=== PATIENT | female | born 1995 | race Caucasian/White ===

== ENCOUNTER 2018-11-26 18:35 | Emergency (ER) | payer SELFPAY ==
--- NOTE | 2018-11-26 19:19 | ER Document Report ---
ED Medical Screen (RME) - General Chief Complaint: Low Back Pain Stated Complaint: BACK PAIN Time Seen by Provider: 11/26/18 19:03 - HPI Notes: 11/26/18 19:15 Patient is a 23-year-old female with a history of herniated disc surgery in April 2018 by [facility] who presents complaining of 4 days of increased right lower back pain. Patient states that today she has had difficulty ambulating as her leg wants to give out on her constantly anytime she puts weight on it. Patient states that she is not experiencing any significant pain when she weight bears, but her leg will give out on her. Patient states that she has been having pain that radiates into the right lower extremity intermittently from her back. Denies drug allergies. She is able to urinate normally and have normal bowel movements. Denies FINNEY, fever, neck pain, URI, CP, SOB, Abd pain, dysuria, or rash. Reviewed with Dr. Almanza: we will obtain an MRI. I have treated and performed a rapid initial assessment of this patient. A comprehensive ED assessment and evaluation of the patient, analysis of test results and completion of medical decision making process will be conducted by additional ED providers. PHYSICAL EXAMINATION: GENERAL: Well-appearing, well-nourished and in no acute distress. LUNGS: Breath sounds clear to auscultation bilaterally and equal. No wheezes rales or rhonchi. HEART: Regular rate and rhythm without murmurs, rubs, gallops. Musculoskeletal: LE's b/l: FROM to passive/active. Strength 5+/5. No deficits noted. No bony tenderness of extremities. Back: FROM to passive/active. Strength 5+/5. No vertebral point tenderness, stepoffs, or deformities. No other bony tenderness, erythema, swelling, or ecchymosis. SLR negative b/l. + tenderness to the Rt L-paraspinal mm. Mild spasming. No SI jt tenderness. No foot drop. When patient was stood up she collapsed to her right knee repeatedly if she tried to put weight on her right leg (not c/o any pain associated, however). Extremities: No cyanosis, clubbing, or edema b/l. Peripheral pulses 2+. Capillary refill less than 2 seconds. PSYCH: Normal mood, normal affect. SKIN: Warm, Dry, normal turgor, no rashes or lesions noted. - Related Data Allergies/Adverse Reactions: No Known Allergies Allergy (Unverified 11/26/18 18:43) Past Medical History - Social History Frequency of alcohol use: None Drug Abuse: None Renal/ Medical History: Denies: Hx Peritoneal Dialysis Past Surgical History: Reports: Hx Orthopedic Surgery - 2019 Physical Exam - Vital signs Vitals: Temp Pulse Resp BP Pulse Ox 98.5 F 86 16 130/76 H 97 11/26/18 18:44 11/26/18 18:44 11/26/18 18:44 11/26/18 18:44 11/26/18 18:44 Course - Vital Signs Vital signs: Temp Pulse Resp BP Pulse Ox 98.5 F 86 16 130/76 H 97 11/26/18 18:44 11/26/18 18:44 11/26/18 18:44 11/26/18 18:44 11/26/18 18:44
--- NOTE | 2018-11-26 20:55 | RADIOLOGY REPORT (SQ) ---
EXAM DESCRIPTION: MR LUMBAR SPINE WITHOUT IV CONTRAST COMPLETED DATE/TME: 11/26/2018 19:14 CLINICAL HISTORY: 23 years Female Low back pain, leg giving way COMPARISON: None. TECHNIQUE: Multiplanar and multisequence imaging obtained through the lumbar spine without IV contrast. FINDINGS: There is normal lumbar alignment and lordosis. Reactive endplate changes are present at L4-5 and L5-S1. Otherwise there is normal marrow signal. There is loss of disc height and signal at L3-4 L4-5 and L5-S1 consistent with disc desiccation. Schmorl's nodes at multiple levels including posterior Schmorl's node at L5. Conus appears unremarkable and ends at L1. L1-2 and L2-3: Essentially unremarkable. L3-4: There is a broad-based central and right sided disc herniation which results in moderate spinal stenosis. A disc fragment extends along the right aspect of the spinal canal and impinges on the right L3 nerve root. L4-5: Broad-based central and right-sided disc protrusion with mild narrowing of the central canal and mild neural foraminal stenosis. L5-S1: Broad-based disc bulge laterally on the left with moderate left neural foraminal narrowing. IMPRESSION: Degenerative disc disease with a broad-based central and right lateral disc herniation with disc fragment extending along the right aspect of the canal resulting in moderate central canal stenosis and impingement on the neural foramen. The nerve root is displaced superiorly and appears slightly enlarged and likely edematous. Broad-based central and slightly right-sided disc and associated with a posterior Schmorl's node resulting in mild central canal stenosis and bilateral neural foraminal stenosis at L4-5 Left lateral disc osteophyte at L5-S1 with moderate left neural foraminal stenosis
[2018-11-26 21:24] LABS: ABSOLUTE LYMPHOCYTES (AUTO) 2.7 10^3/uL (0.5-4.7); ABSOLUTE MONOCYTES (AUTO) 0.8 10^3/uL (0.1-1.4); ABSOLUTE NEUT (AUTO) 9.6 10^3/uL (1.7-8.2); BASOPHILS % (AUTO) 0.3 % (0-2); EOSINOPHILS % (AUTO) 0.3 % (0-6); HEMOGLOBIN 13.2 g/dL (12.0-15.5); LYMPHOCYTES % (AUTO) 20.3 % (13-45); MEAN CORPUSCULAR HEMOGLOBIN 27.6 pg (27.0-33.4); MEAN CORPUSCULAR HGB CONC 33.8 g/dL (32.0-36.0); MEAN CORPUSCULAR VOLUME 82 fl (80-97); MONOCYTES % (AUTO) 6.5 % (3-13); PLATELET COUNT 412 10^3/uL (150-450); RED BLOOD COUNT 4.77 10^6/uL (3.72-5.28); RED CELL DISTRIBUTION WIDTH 13.9 % (11.5-14.0); SEGMENTED NEUTROPHILS % (AUTO) 72.6 % (42-78); TOTAL CELLS COUNTED % (AUTO) 100 %; WHITE BLOOD COUNT 13.2 10^3/uL (4.0-10.5)
[2018-11-26 21:36] LABS: ALBUMIN 4.6 g/dL (3.5-5.0); ALKALINE PHOSPHATASE 87 U/L (38-126); ANION GAP 11 (5-19); ASPARTATE AMINO TRANSFERASE 20 U/L (14-36); BILIRUBIN,DIRECT 0.3 mg/dL (0.0-0.4); BILIRUBIN,TOTAL 0.5 mg/dL (0.2-1.3); BLOOD UREA NITROGEN 11 mg/dL (7-20); CALCIUM 10.1 mg/dL (8.4-10.2); CARBON DIOXIDE 29 mmol/L (22-30); CHLORIDE 100 mmol/L (98-107); GLUCOSE 89 mg/dL (75-110); POTASSIUM 4.5 mmol/L (3.6-5.0); TOTAL PROTEIN 8.2 g/dL (6.3-8.2)
[2018-11-26 21:38] LABS: APPEARANCE,URINE CLEAR; BILIRUBIN,URINE NEGATIVE (NEGATIVE); COLOR,URINE YELLOW; GLUCOSE, URINE NEGATIVE (NEGATIVE); KETONES,URINE NEGATIVE (NEGATIVE); LEUKOCYTE ESTERASE,URINE NEGATIVE (NEGATIVE); NITRITE,URINE NEGATIVE (NEGATIVE); PROTEIN,URINE NEGATIVE (NEGATIVE); URINE SPECIFIC GRAVITY 1.021; UROBILINOGEN,URINE NEGATIVE mg/dL (<2.0)
--- NOTE | 2018-11-26 21:38 | ER Document Report ---
ED General - General Chief Complaint: Low Back Pain Stated Complaint: BACK PAIN Time Seen by Provider: 11/26/18 19:03 Primary Care Provider: STEPHANIA ORTIZ MD [Primary Care Provider] - Follow up as needed Notes: 23-year-old female with a history of herniated disc surgery in April 2018 by [facility] who presents complaining of 4 days of increased right lower back pain. Patient states that today she has had difficulty ambulating as her leg wants to give out on her constantly anytime she puts weight on it. Patient states that she is not experiencing any significant pain when she bears weight. Patient states that she has been having pain that radiates into the right lower extremity intermittently from her back. Denies drug allergies. She is able to urinate normally and have normal bowel movements. Denies FINNEY, fever, neck pain, URI, CP, SOB, Abd pain, dysuria, or rash. - Related Data Allergies/Adverse Reactions: No Known Allergies Allergy (Unverified 11/26/18 18:43) Past Medical History - Social History Smoking Status: Unknown if Ever Smoked Frequency of alcohol use: None Drug Abuse: None Family History: None Patient has suicidal ideation: No Patient has homicidal ideation: No Renal/ Medical History: Denies: Hx Peritoneal Dialysis Past Surgical History: Reports: Hx Orthopedic Surgery - 2019 Review of Systems - Review of Systems Constitutional: See HPI EENT: No symptoms reported Cardiovascular: See HPI Respiratory: See HPI Gastrointestinal: No symptoms reported Genitourinary: No symptoms reported Female Genitourinary: No symptoms reported Musculoskeletal: See HPI Skin: No symptoms reported Hematologic/Lymphatic: No symptoms reported Neurological/Psychological: See HPI Physical Exam - Vital signs Vitals: Temp Pulse Resp BP Pulse Ox 98.5 F 86 16 130/76 H 97 11/26/18 18:44 11/26/18 18:44 11/26/18 18:44 11/26/18 18:44 11/26/18 18:44 - Notes Notes: PHYSICAL EXAMINATION: Reviewed vital signs and charting by RN GENERAL: Alert, interacts well. No acute distress. HEAD: Normocephalic, atraumatic. EYES: Pupils equal and round. Extraocular movements intact. ENT: Oral mucosa moist, tongue midline. NECK: Full range of motion. Trachea midline. LUNGS: Clear to auscultation bilaterally, no wheezes, rales, or rhonchi. No respiratory distress. HEART: Regular rate and rhythm. No murmur ABDOMEN: soft, non-tender. No distention. Bowel sounds present EXTREMITIES: Moves all 4 extremities spontaneously. No edema, No cyanosis. Reduced sensation over the L2-L3 distribution on the right anterior thigh, normal patellar reflex, 5/5 plantar and dorsiflexion strength to resistance, patient with slightly reduced strength on hip flexion compared to left side PSYCH: Normal affect, normal mood. SKIN: Warm, dry, normal turgor. No rashes or lesions noted. Course - Re-evaluation Re-evalutation: 11/26/18 22:[address] Almanza who initially saw the patient in triage. MRI is complete which showed broad-based central and right lateral disc herniation with disc fragment extending along the right aspect of the canal resulting in moderate central canal stenosis and impingement of the neural foramen. The nerve root is displaced superiorly and appears slightly enlarged and probably edematous. Also, there is broad-based central and slightly right-sided disc and associated with a posterior Schmorl's node resulting in mild central canal stenosis and bilateral neuroforaminal stenosis at L4-L5. I called the transfer center at [facility] and am awaiting a callback from the neurosurgeon occupational therapy co director. The patient's neurosurgeon is Dr. Shepard 11/26/18 22:[address] Shepard and he did not receive images that we attempted to push over to [facility]. Based on my dictation of the MRI report to him he said this was an unusual presentation and he wants to see her in his office at 9:30 AM on Sunday. I explained this in detail to the patient and she is in agreement. I gave patient strict instructions if there were any red flags to include urinary retention, bowel incontinence, paralysis, saddle paresthesias that she should bypass coming back to [facility] and she should go directly to a center that has neurosurgical capability as we would ultimately transfer her and delay emergent care for hours if she were to have those symptoms. Patient clearly understands the plan and is in agreement with it. She is stable for discharge - Vital Signs Vital signs: Temp Pulse Resp BP Pulse Ox 98.5 F 86 16 130/76 H 97 11/26/18 18:44 11/26/18 18:44 11/26/18 18:44 11/26/18 18:44 11/26/18 18:44 - Laboratory Result Diagrams: 11/26/18 21:08 11/26/18 21:08 Laboratory results interpreted by me: 11/26/18 21:08 WBC 13.2 H Absolute Neutrophils 9.6 H Discharge - Discharge Clinical Impression: Right leg weakness Condition: Stable Disposition: HOME, SELF-CARE Additional Instructions: Please follow-up with Dr. Randle tomorrow at 9:30 AM promptly. We have arranged this follow-up through the [facility] center. Please return to the emergency department if you have any of the red flags that we discussed: Paralysis of any of your extremities, urinary retention, bowel incontinence, saddle paresthesias i.e. sit bones numbness, or progressively worsening weakness of any of your extremities. Referrals: STEPHANIA ORTIZ MD [Primary Care Provider] - Follow up as needed
[2018-11-26 23:13] VITALS: BP 130/67
== END 2018-11-26 23:20 | disposition home or self-care (01) ==
LOC: ER 18:35
DX: R53.1 Weakness (principal); M51.26 Other intervertebral disc displacement, lumbar region; M51.27 Other intervertebral disc displacement, lumbosacral region; M48.061 Spinal stenosis, lumbar region without neurogenic claudication; M79.604 Pain in right leg; R20.8 Other disturbances of skin sensation; Z98.890 Other specified postprocedural states
CPT/HCPCS: 36415; 72148; 80053; 81001; 81025; 85025; 99284